=== PATIENT | male | born 1960 | race Caucasian/White ===

== ENCOUNTER → 2016-09-14 | Outpatient (CLI) | payer OTHER ==
--- NOTE | 2016-09-14 09:59 | RAD ---
HISTORY: Low back pain, radiculopathy Study: Three views lumbar spine Comparison: None Findings: Multilevel postsurgical changes are noted. There is transpedicular fusion at L5-S1. There are bilate ral transpedicular screws at L4 without rods at this level. There are intervertebral disc spacers at L2-L3 and L3-L4. There is a suspected chronic fracture of L3 with 25% height loss approximately. Mu ltilevel disc disease and facet arthropathy is present. There is advanced disc space narrowing and v acuum phenomenon at T11-T12. There is a partially visualized spinal stimulator device with battery p ack on the right. The soft tissues are unremarkable. IMPRESSION: 1. Multilevel postsurgical and degenerative changes of the lumbar spine described above and greater detail. There is a chronic appearing fracture of L3. Reported By:
--- NOTE | 2016-09-14 13:25 | NM ---
HISTORY: Low back pain Study: Nuclear medicine whole-body bone scan Comparison: Lumbar radiographs same date Technique: Whole body bone scintigraphy was performed in the anterior and posterior projection after the intravenous administration of 25.5 mCi of technetium labeled MDP. Findings: Physiologic distribution of radiotracer is observed throughout the appendicular and axial skeleton. Normal soft tissue uptake and renal excretion is noted. There is focal uptake visualized in the low er thoracic spine where there are prominent degenerative changes seen at the level of T11-12. No com pression fracture is identified in the region. No abnormal uptake is seen in the lumbar spine region . Mild degenerative uptake is suspected at the bilateral sacroiliac joints. IMPRESSION: 1. There is focal radiotracer uptake in the lower thoracic spine at approximately T11-T12 where ther e is advanced degenerative disc disease with endplate changes and vacuum phenomenon on today's lumba r radiographs. Findings are favored to be reactive in nature. No fracture is identified on radiograp hy. 2. No abnormal radiotracer uptake is seen associated with the lumbar hardware. 3. Mild increased uptake at the sacroiliac joints, likely degenerative in nature. Reported By:
== END ==
LOC: RAD 08:59
PROVIDERS: ATTEND Neurological Surgery
DX: M47.896 Other spondylosis, lumbar region (principal)
CPT/HCPCS: 72100; 78306

== ENCOUNTER → 2016-09-27 | Outpatient (CLI) | payer OTHER ==
--- NOTE | 2016-09-27 15:16 | CT ---
HISTORY: Thoracic neuritis Study: CT thoracic spine without contrast Comparison: Nuclear medicine bone scan 09/14/2016 Technique: Multiple axial images of the thoracic spine were obtained from the thoracic inlet to the thoracolumbar junction. Sagittal and coronal reconstructions were performed and reviewed. Dose red uction techniques including Automated Exposure Control (AEC) and adjustment of mA and kV were utiliz ed. Findings: Normal alignment of the thoracic spine is maintained. Vertebral body heights are preserved. There is advanced degenerative disc disease and facet arthropathy at T11-12 of total disc height loss with vacuum phenomenon, subchondral cystic and sclerotic changes of the opposing endplates, as well as a dvanced facet arthropathy, worse on the right. The posterior elements and central canal appear unrem arkable. No significant paraspinal soft tissue injury can be identified. The visualized lungs are cl ear. No evidence of acute fracture. Partially visualized surgical changes are seen in the lumbar spi ne. There is a spinal stimulator device in place terminating at the T8-T9 level. IMPRESSION: 1. Advanced degenerative changes at T11-T12 as described with prominent sclerotic and subchondral cy stic endplate changes as well as facet arthropathy. No evidence of acute fracture or destructive oss eous lesion. 2. Spinal stimulator device in place terminating at the T8-T9 level. Reported By:
== END | disposition home or self-care (01) | DRG 552 ==
LOC: RAD 13:54
PROVIDERS: ATTEND Neurological Surgery
DX: M51.34 Other intervertebral disc degeneration, thoracic region (principal); M54.14 Radiculopathy, thoracic region
CPT/HCPCS: 72128

== ENCOUNTER → 2017-06-05 | Outpatient (CLI) | payer OTHER ==
--- NOTE | 2017-06-05 13:50 | RAD ---
Examination: Lumbar spine, five views History: Neuritis, recent surgery Findings: There is a gentle dextroscoliosis centered at L4. There are pedicle screws and stabilizing rods at L3-4, and a separate set of similar hardware at L5-S1. There are intra discal grafts present. There is 1.0 cm retrolisthesis at L3-4 which does not change with forward bending, flexion/extension . There is a wedge-shaped deformity of L3 which may reflect previous trauma. Additional fusion hardwa re is present up of, at T11-12. Impression: 1. Findings of interbody and PLIF at lumbosacral levels described. 2. Consistent retrolisthesis at L3-4 without evidence for functional instability. 3. Nonacute compression contour deformity of L3 vertebral body. 4. Status post fusion at T11-12. Reported By:
== END ==
LOC: RAD 12:48
PROVIDERS: ATTEND Neurological Surgery
DX: M54.16 Radiculopathy, lumbar region (principal)
CPT/HCPCS: 72110

== ENCOUNTER → 2017-08-15 | Outpatient (CLI) | payer OTHER ==
--- NOTE | 2017-08-15 12:09 | RAD ---
Examination: Cervical spine History: Chronic neck pain, preop Findings: Degenerative disc narrowing and osteophyte formation noted at multiple lower cervical level s. No fracture or bone destruction, subluxation or odontoid abnormality is demonstrated. There is sym metric osteophyte impingement on the C5-6 neural foramina. Impression: Multilevel degenerative disc disease and spondylosis with bilateral C5-6 neural foramen n arrowing. No acute features. Reported By:
--- NOTE | 2017-08-15 15:52 | CT ---
STUDY: CT OF THE CERVICAL SPINE HISTORY: Chronic neck pain. Technique: Multiple axial images of the cervical spine were obtained from the skull base to the thora cic inlet without administration of IV contrast. Sagittal and coronal reformats were performed and r eviewed. Automated exposure control (AEC) was utilized to adjust the MA and/or kV. Comparison: None. Findings: There is straightening of the usual cervical lordosis. There is multilevel degenerative disc disease and degenerative endplate change, probably most prominent at C5 and C6. There is no evidence of acute fracture or subluxation. Facet alignment is within normal limits bilaterally. The spinous processes are intact. There is no significant prevertebral soft tissue swelling. The lateral masses of C1, and the C1/C2 relationship are normal. The odontoid process is intact. The occipital condyles and their r elationship with C1 are normal. IMPRESSION: 1. No evidence of acute cervical spine fracture or subluxation. 2. Straightening of the usual cervical lordosis. This finding may be positional or seceondary to mus tano spasm. Clinical correlation is recommended. 3. Multilevel cervical spondylosis. Reported By:
== END ==
LOC: RAD 11:21
PROVIDERS: ATTEND Neurological Surgery
DX: M50.322 Other cervical disc degeneration at C5-C6 level (principal)
CPT/HCPCS: 72050; 72125